=== PATIENT | female | born 1980 | race Caucasian/White ===

== ENCOUNTER 2019-08-12 17:28 | Emergency (ER) | payer MEDICAID, SELFPAY ==
[2019-08-12 17:35] VITALS: BP 145/87; PULSE 95; RESP 18; TEMP 37; O2SAT 100
--- NOTE | 2019-08-12 17:54 | ED.GENADUL_ITS ---
Discharge Plan Disposition Patient Disposition: HOME Condition: Improving Discharge Details Chief Complaint: Sorethroat Clinical Impression: Acute viral syndrome Primary Care Provider: Emy Bacon ED Provider: Wan Guillory Home Meds and New Rx's Prescriptions: Continued Ca carb-Ca gluc-Mg ox-Mg gluco [Calcium Magnesium] 1 EACH tablet 1 tab PO TID RF: 0 L.acidoph, paracasei,B. lactis 1 EACH capsule 1 cap PO TID RF: 0 vit no.[id number] [ One Daily] 1 EACH tablet 3 tab PO DAILY RF: 0 ranitidine HCl [Zantac] 150 MG tablet 150 mg PO BID Qty: 60 RF: 0 Discharge Instructions Instructions: Viral Syndrome (ED) Additional Instructions: May use Benadryl 25 mg at bedtime if rash is persistent and itching. Alternatively you may use calamine lotion or Benadryl topical cream. Small, frequent sips of fluids that she maintain hydration. Follow-up with regular doctor if not improved in 3 to 5 days time. Return to the ER for any acute concern. Medical Decision Making 38-year-old female with sore throat and rash. After some history taking, she reveals she was concerned for meningitis. She is not toxic in appearance, she has a mild blanching erythematous rash that is likely a viral exanthem. A screening strep test was obtained and negative. Patient was reassured as to the nature of probable viral syndrome. She will be discharged home. HPI General Mode of arrival: ambulatory . Date/Time Provider Initiated Documentation: 08/12/19 17:39 . Limitations to Documentation: no limitations . Information obtained by: patient . History of Present Illness 38 year old F presents to the emergency department with the chief complaint of Worried about mild rash and sore throat, described as mild, Quality is described as constant, and is localized to the neck. Patient reports no radiation. Patient started experiencing this hour(s) and it has been constant. No relieving factors improve symptom(s), No exacerbating factors reported . Patient notes fever/chills and other (Mildly itchy). Related Data Home Medications Medication Instructions Recorded Confirmed Ca carb-Ca gluc-Mg ox-Mg gluco 1 tab PO TID 05/10/16 05/10/16 [Calcium Magnesium] L.acidoph, paracasei,B. lactis 1 cap PO TID 05/10/16 05/10/16 vit no.[id number] 3 tab PO DAILY 05/10/16 05/10/16 [ One Daily] ranitidine HCl [Zantac] 150 mg PO BID #60 tab 05/10/16 Previous Rx's Medication Instructions Recorded ranitidine HCl [Zantac] 150 mg PO BID #60 tab 05/10/16 Allergies Allergy/AdvReac Type Severity Reaction Status Date / Time No Known Allergies Allergy Unverified 05/10/16 14:10 General Stated Complaint: Sorethroat JANETH: 4 Review of Systems Narrative: Sore throat, no headache, no vomiting. 6 systems reviewed and otherwise negative PFSH Family History Father Essential hypertension Grandmother Personal history of malignant neoplasm breast ca Social History Do you feel safe in your relationship?: Yes Exam Narrative Exam Narrative: GEN: awake, alert, oriented 3. Pleasant, well groomed, interactive. HEAD: Normocephalic, atraumatic ENT: Mucous membranes moist, oropharynx unremarkable, External ear exam unremarkable EYES: PERRL, EOMI NECK: Full ROM, no YOAN, no menigismus CHEST/RESP: Nontender, clear to auscultation bilateral, no wheeze/rhonchi/rales CARDIOVASCULAR: RRR, no murmur, rub jaylon. 2+ Rad pulse bilateral ABDOMEN: Soft, nontender, no mass. +Bowel sounds EXT: Full ROM, no edema Skin: Erythematous, blanching rash present on posterior neck and upper thorax. Neuro: Grossly normal neurologic exam, conversant, interactive. Psych: Speech fluent, thoughts congruent, affect normal Course Vital Signs Vital signs: Vital Signs Temperature 37 C 08/12/19 17:35 Pulse 95 H 08/12/19 17:35 Respiratory Rate 18 08/12/19 17:35 Blood Pressure 145/87 H 08/12/19 17:35 Pulse Oximetry 100 08/12/19 17:35 Temperature 37 C 08/12/19 17:35 Temperature Source Skin 08/12/19 17:35 Pulse 95 H 08/12/19 17:35 Respiratory Rate 18 08/12/19 17:35 Blood Pressure 145/87 H 08/12/19 17:35 Blood Pressure Position Supine 08/12/19 17:35 Pulse Oximetry 100 08/12/19 17:35 Oxygen Delivery Method Room Air 08/12/19 17:35 Oxygen Flow Rate 0 08/12/19 17:35 Pain Level 2 08/12/19 17:35 Lab/Test Results Lab/Test Results: POC Strep Test-EDGAR(Rapid) Start: 08/12/19 17:53 Freq: .Rapid Strep Test Status: Active Protocol: Document 08/12/19 17:53 LL (Rec: 08/12/19 17:54 LL [email or web address]) Strep test-EDGAR(Rapid)-POC POC-Strep test-EDGAR (Rapid) Negative POC-Strep test-EDGAR (Rapid) Negative
== END 2019-08-12 18:10 | disposition home or self-care (01) ==
PROVIDERS: Emergency Provider Emergency Medicine; PCP Family Medicine
DX: J02.8 Acute pharyngitis due to other specified organisms (principal); B09 Unspecified viral infection characterized by skin and mucous membrane lesions
CPT/HCPCS: 87880; 99282; 87081

== ENCOUNTER 2019-12-18 01:15 | Outpatient (CLI) | payer MEDICAID, SELFPAY ==
[2019-12-18 12:22] LABS: Absolute Basophil Count 0.02 k/cumm (0.0-0.2); Absolute Eosinophil Count 0.04 k/cumm (0.0-0.7); Absolute Lymphocyte Count 1.55 k/cumm (1.2-3.4); Absolute Monocyte Count 0.36 k/cumm (0.11-0.7); Absolute Neutrophil Count 2.38 k/cumm (1.2-6.7); Basophils % 0.5; Eosinophils % 0.9; HCT 38.5 % (36.0-46.0); HGB 13.1 g/dL (12.0-15.5); Lymphocytes % 35.6; Mean Corpuscular Hemoglobin 29.6 pg (27.0-33.0); Mean Corpuscular Volume 87.1 fL (80-95); Mean Platelet Volume 10.1 fL (8.0-11.0); Monocytes % 8.3; Neutrophils % 54.7; Platelet Count 256 x1000/uL (130-400); RBC 4.42 m/cumm (4.00-5.20); RBC Distribution Width 13.3 % (11.7-14.6); White Blood Cell Count 4.35 k/cumm (4.4-10.8)
[2019-12-18 13:06] LABS: Iron 61 ug/dL (50-170); Total Iron Binding Capacity 390 ug/dL (250-450); Transferrin Sat 16 % (15-50)
[2019-12-18 13:42] LABS: ALT 25 U/L (14-59); AST 12 U/L (15-37); Albumin 4.1 g/dL (3.4-5.0); Alkaline Phosphatase 50 U/L (46-116); BUN 14 mg/dL (7-18); Bilirubin, Total 0.5 mg/dL (0.2-1.0); Calcium 9.1 mg/dL (8.5-10.1); Chloride 104 mmol/L (98-107); Ferritin 22 ng/mL (8-252); Folate 19.8 ng/mL (8.6-20.0); Glucose 112 mg/dL (74-106); Potassium 4.3 mmol/L (3.5-5.1); Sodium 140 mmol/L (136-145); TSH 1.55 uIU/mL (0.36-3.74); Total Protein 7.1 g/dL (6.4-8.2); Vitamin B12 628 pg/mL (193-986)
[2019-12-18 14:06] LABS: FREE T4 1.13 ng/dL (0.76-1.46); NT-proBNP 9 pg/mL (<300)
[2019-12-18 17:44] LABS: T3,Free 3.9 pg/mL (2.8-5.3)
[2019-12-19 05:42] LABS: Vitamin D 25 Total 39.8 ng/ml (30-100)
[2019-12-19 09:04] LABS: FSH 3.8 mIU/mL (See Note); LH 4.2 mIU/mL (See Note)
[2019-12-19 19:26] LABS: Zinc, Serum 0.77 mcg/mL (0.66-1.10)
[2019-12-20 09:22] LABS: Homocysteine 6.9 umol/L (5.0-13.9)
== END 2019-12-18 01:35 ==
PROVIDERS: PCP Family Medicine; Visit Provider Naturopath
DX: R53.83 Other fatigue (principal); N92.6 Irregular menstruation, unspecified; F41.9 Anxiety disorder, unspecified; E55.9 Vitamin D deficiency, unspecified; R00.0 Tachycardia, unspecified; R06.00 Dyspnea, unspecified; K90.9 Intestinal malabsorption, unspecified
CPT/HCPCS: 36415; 80053; 82306; 83090; 82607; 82728; 82746; 83001; 83002; 83540; 83550; 83880; 84439; 84443; 84481; 84630; 85025

== ENCOUNTER 2019-12-26 08:03 | Outpatient (CLI) | payer MEDICAID, SELFPAY | END 2019-12-26 08:23 | PROVIDERS: PCP Family Medicine; Visit Provider Naturopath | DX: R07.9 Chest pain, unspecified (principal); R00.0 Tachycardia, unspecified | CPT/HCPCS: 93005; 93010 ==

== ENCOUNTER 2020-02-01 11:04 | Emergency (ER) | payer MEDICAID, SELFPAY ==
[2020-02-01 11:13] VITALS: BP 153/79; PULSE 82; RESP 16; TEMP 36.6; O2SAT 98
--- NOTE | 2020-02-01 11:15 | DI.RAD_ITS ---
EXAM: XR FOOT RT COMPLETE CLINICAL HISTORY: fall. TECHNIQUE: 2D digital imaging was performed. COMPARISON: No exams were available for comparison FINDINGS: BONES: No acute fracture is present. No bony destructive lesion is seen. JOINTS: No dislocation present. SOFT TISSUE: Normal. IMPRESSION: Unremarkable radiographs of the right foot. DATA REPOSITORY: RADIATION DOSE DELIVERED:
--- NOTE | 2020-02-01 11:29 | ED.GENADUL_ITS ---
Discharge Plan Disposition Patient Disposition: HOME Condition: Stable Discharge Details Chief Complaint: Orthopedic Clinical Impression: Right foot sprain Primary Care Provider: James Dunham ED Provider: Yanet Walsh Discharge Instructions Instructions: Foot Sprain (ED) Additional Instructions: Follow up with primary care provider in 3-5 days. Return to ED sooner if any worsening or concerns. Increase oral fluids. Please take Tylenol or Ibuprofen with food every 4-6 hours as needed for pain and swelling. Wear postop shoe and Joey wrap as needed for comfort. Rest, ice, compression, elevation. Apply ice for 20 minutes on and off for the first 2 to 3 days. Referrals: James Dunham [Primary Care Provider] - Discharge Data Discharge Date/Time-TO BE ENTERED AT DEPARTURE: 02/01/20 13:01 Medical Decision Making 39-year-old female presents to the ER with right foot pain after a trip and fall forward while chasing her 3-year-old child last night at 9 PM. She reports that her foot hyperflexed dorsally landing on her knees and arms. She does complain of little bit of right knee pain, no significant swelling, deformity or ecchymosis noted on initial exam. She rates her pain mild on a severity scale. She reports no other injuries. She reports an old injury noted to the base of her right toe and is just concerned for reinjury. Did not take any medications prior to arrival. X-rays of foot obtained rule out fracture, patient declined Tylenol or ibuprofen at this time, at this time I do suspect sprain versus fracture. Discussed Ortho boot with patient, verbalized understanding. Imaging protocol: XR Right foot. Views: 3 or more views. COMPARISON: No relevant prior studies available. FINDINGS: The bony structures are in anatomic alignment. No fracture is present. No radiopaque foreign body is identified. The joint spaces are well maintained. IMPRESSION: No evidence of acute bony abnormality. Thank you for allowing us to participate in the care of your patient. Dictated and Authenticated by: Boo Warren MD [facility] General Mode of arrival: ambulatory . Date/Time Provider Initiated Documentation: 02/01/20 11:23 . Limitations to Documentation: no limitations . Information obtained by: patient . HPI Narrative: 39-year-old female presents to the ER with right foot pain after a trip and fall forward while chasing her 3-year-old child last night at 9 PM. She reports that her foot hyperflexed dorsally landing on her knees and arms. She does complain of little bit of right knee pain, no significant swelling, deformity or ecchymosis noted on initial exam. She rates her pain mild on a severity scale. She reports no other injuries. She reports an old injury noted to the base of her right toe and is just concerned for reinjury. Did not take any medications prior to arrival. Related Data Allergies Allergy/AdvReac Type Severity Reaction Status Date / Time No Known Allergies Allergy Unverified 02/01/20 11:19 General Stated Complaint: Orthopedic JANETH: 4 Review of Systems Narrative: Constitutional: Negative for weight loss, alert and oriented, well groomed, normal body habitus, appears comfortable. HEENT: Denies trauma, headaches, blurry vision, nasal discharge, sore throat, trouble swallowing. Chest: Denies chest pain, palpitations, irregular rhythm, hypertension. Respiratory: Denies Shortness of breath, cough, hemoptysis. Musculoskeletal: Reports right foot pain after a trip and fall last night at 9 PM. Neuro: Denies dizziness, blurry vision, weakness, syncope, headache or facial numbness. PFSH Family History Father Essential hypertension Grandmother Personal history of malignant neoplasm breast ca Social History Smoking/Tobacco Use Status: Never Alcohol Intake: never Drug use: Never Substance use type: does not use Details: CBD oil. Do you feel safe at home: Yes Do you feel safe in your relationship?: Yes Exam Narrative Exam Narrative: Constitutional: Alert and oriented x3. Appears stated age. Overweight body habitus. Head: Normocephalic, no trauma. Eyes: Pupils PERRLA, Red reflex noted, EOM's intact. Eyelids symmetrical without lesions, discharge, or swelling. ENT: Bilateral TM's WNL, External ear normal to inspection, no mastoid TTP, swelling, or erythema, Nasal turbinates WNL, no nasal discharge. Normal dentition, Posterior pharynx WNL, no exudate. Chest: RRR, Normal S1, S2, distal pulses intact. Resp: Lungs clear to auscultation bilaterally, no wheezes, rales, or rhonchi. Musculoskeletal: Normal gait, 5/5 strength to all four extremities. Patient reports right dorsal foot tenderness, right anterior knee tenderness after mechanical fall last night at 9 PM. No obvious deformity, ecchymosis dorsal pedal pulses intact full range of motion noted to her foot. No medial or lateral malleolus tenderness palpated. No calcaneal tenderness palpated. Skin: No suspicious rashes or lesions. Capillary refill less than 2 sec. Neurologic: Cranial nerves II-XII intact. Alert and oriented x 3. DTR's intact. Hematologic/Lymphatic: No ecchymosis, no lymphadenopathy. Course Vital Signs Vital signs: Vital Signs Temperature 36.6 C 02/01/20 11:13 Pulse 82 02/01/20 11:13 Respiratory Rate 16 02/01/20 11:13 Blood Pressure 153/79 H 02/01/20 11:13 Pulse Oximetry 98 02/01/20 11:13 Temperature 36.6 C 02/01/20 11:13 Temperature Source Tympanic 02/01/20 11:13 Pulse 82 02/01/20 11:13 Respiratory Rate 16 02/01/20 11:13 Respiratory Effort Non-Labored 02/01/20 11:17 Blood Pressure 153/79 H 02/01/20 11:13 Blood Pressure Position Sitting 02/01/20 11:13 Pulse Oximetry 98 02/01/20 11:13 Oxygen Delivery Method Room Air 02/01/20 11:13 Oxygen Flow Rate 0 02/01/20 11:13 Pain Level 3 02/01/20 11:17
--- NOTE | 2020-02-01 12:14 | DI.VRAD_ITS ---
PROCEDURE INFORMATION: Exam: XR Right Foot Complete Exam date and time: 02/01/2020 11:21 AM Age: 39 years old Clinical indication: Other: Fall TECHNIQUE: Imaging protocol: XR Right foot. Views: 3 or more views. COMPARISON: No relevant prior studies available. FINDINGS: The bony structures are in anatomic alignment. No fracture is present. No radiopaque foreign body is identified. The joint spaces are well maintained. IMPRESSION: No evidence of acute bony abnormality. Dictated and Authenticated by: Boo Warren MD. Ordering:ARMINDA Holt MD
[2020-02-01 13:02] VITALS: BP 116/57; PULSE 81; RESP 14; TEMP 36.6; O2SAT 98
== END 2020-02-01 13:01 | disposition home or self-care (01) ==
PROVIDERS: Emergency Provider Registered Nurse Emergency; PCP Family Medicine
DX: S93.601A Unspecified sprain of right foot, initial encounter (principal); W01.0XXA Fall on same level from slipping, tripping and stumbling without subsequent striking against object, initial encounter
CPT/HCPCS: 99283; 73630; 99282; L4361

== ENCOUNTER 2023-05-23 14:56 | Outpatient (CLI) | payer MEDICAID, SELFPAY ==
--- NOTE | 2023-05-23 14:30 | DI.RAD_ITS ---
Exam(s) XR SHOULDER LT COMPLETE 2+V EXAM: XR SHOULDER LT COMPLETE 2+V CLINICAL HISTORY: LEFT SHOULDER PAIN. TECHNIQUE: 2D digital imaging was performed. Two views. COMPARISON: No exams were available for comparison FINDINGS: BONES: No acute fracture is present. No bony destructive lesion is seen. JOINTS: No dislocation present. There are no significant degenerative changes. SOFT TISSUE: Normal. IMPRESSION: Unremarkable radiographs of the left shoulder. DATA REPOSITORY: RADIATION DOSE DELIVERED:
== END 2023-05-23 14:57 | disposition home or self-care (01) ==
LOC: DIORS 14:56
PROVIDERS: PCP Family Medicine; Visit Provider Student in an Organized Health Care Education/Training Program
DX: M25.512 Pain in left shoulder (principal)
CPT/HCPCS: 73030

== ENCOUNTER → 2023-08-31 00:22 | Outpatient (CLI) | payer MEDICAID, SELFPAY ==
--- NOTE | 2023-08-31 07:15 | DI.MRI_ITS ---
Exam(s) MR UPPER JOINT LT WO EXAM: MR UPPER JOINT LT WO CLINICAL HISTORY: ? RTC TEAR,adhesive capsulitis lt shoulder,m75.02. TECHNIQUE: Multiplanar multisequence MRI was performed. COMPARISON: CR XR SHOULDER LT COMPLETE 2+V from 05/23/2023 FINDINGS: BONES: There is no fracture or contusion pattern. JOINTS: The acromioclavicular joint is normal. The glenohumeral joint is normal. TENDONS: Supraspinatus: There is tendinosis of the supraspinatus tendon. There is hyperintense signal seen wi thin the tendon suspicious for partial intrasubstance tear. Infraspinatus: Unremarkable. Subscapularis: Unremarkable. Teres Minor: Unremarkable. Biceps and Shoals: Unremarkable. MUSCLES: Unremarkable. GLENOID LABRUM: Unremarkable on this noncontrast examination. SOFT TISSUES: Unremarkable. LIGAMENTS: Unremarkable. OTHER: There is a tiny amount of fluid in the subacromial subdeltoid bursa. IMPRESSION: There is tendinosis of the supraspinatus tendon. There is hyperintense signal seen within the supras pinatus tendon suspicious for partial intrasubstance tear. DATA REPOSITORY:
== END ==
PROVIDERS: PCP Family Medicine; Visit Provider Student in an Organized Health Care Education/Training Program
DX: M75.02 Adhesive capsulitis of left shoulder (principal)
CPT/HCPCS: 73221

== ENCOUNTER 2023-10-25 18:55 | Outpatient (REF) | payer MEDICAID, SELFPAY ==
--- NOTE | 2023-10-25 13:30 | PAPFT_PTH ---
PATIENT: Cheli Bob LOC: [facility] U#:[id number] AGE/SX: 43/F ROOM: RE10/25/[address]: Ginny Crain : 1980 BED: DIS: 10/25/2023 SPEC #: [id number] RECD: 10/26/23 13:04 STATUS: JONAH REShira #: [id number] LINO: 10/25/23 13:[address]: Ginny Crain DEPT: [facility] Cytology RECD BY: Karmen Varner ENTERED: 10/26/23 13:04 SP TYPE: PAPFT OTHR DR: James Dunham Tissues: 1 - CX/ENDOCX FOR PAP SMEARS Procedures: PAP THIN PREP/[facility] Screening HPV DNA PROBE Comments: [id number] (HPV 16 & 18/45) (CHLAMYDIA/GC)
[2023-10-27 15:27] LABS: Chlamydia Result Negative (Negative); GC Result Negative (Negative)
== END 2023-10-25 18:56 | disposition home or self-care (01) ==
LOC: LBN 18:55
PROVIDERS: PCP Family Medicine; Visit Provider Nurse Practitioner Family
DX: Z01.419 Encounter for gynecological examination (general) (routine) without abnormal findings (principal)
CPT/HCPCS: 87491; 87591; 88142; 87624

== ENCOUNTER 2025-03-13 15:45 | Outpatient (CLI) | payer MEDICAID, SELFPAY ==
[2025-03-13 15:47] LABS: Abs Immature Grans 0.01 10^3/uL (0.0-0.06); HCT 38.9 % (36.0-46.0); HGB 13.4 g/dL (11.2-15.7); Immature Grans % 0.1 %; MCH 29.8 pg (27.0-33.0); MCHC 34.4 % (32.0-36.0); MCV 87 fL (80-95); MPV 9.5 fL (8.0-11.0); Platelet Count 254 10^3/uL (130-400); RBC 4.49 10^6/uL (3.93-5.22); RDW 13.2 % (11.7-14.6); RDW-SD 41.7 fL; WBC 6.73 10^3/uL (4.4-10.8)
[2025-03-13 16:45] LABS: ALT 19 U/L (14-59); AST 9 U/L (15-37); Albumin 3.8 g/dL (3.4-5.0); Alkaline Phosphatase 49 U/L (46-116); Anion Gap 8.5 mmol/L (3-11); BUN 13 mg/dL (7-18); Bilirubin, Total 0.5 mg/dL (0.2-1.0); CO2 27.5 mmol/L (21.0-32.0); Calcium 8.9 mg/dL (8.5-10.1); Chloride 103 mmol/L (98-107); Estimated GFR 93.70 (mL/min/1.73m2); Glucose 103 mg/dL (74-106); Potassium 3.7 mmol/L (3.5-5.1); Sodium 139 mmol/L (136-145); TSH 2.06 uIU/mL (0.36-3.74); Total Protein 7.1 g/dL (6.4-8.2); Triglyceride 101 mg/dL (<150)
[2025-03-13 17:39] LABS: Calculated LDL 126 mg/dL (<100); Cholesterol 197 mg/dL (<200); Ferritin 30 ng/mL (8-252); HDL Cholesterol 51 mg/dL (>or=50)
[2025-03-13 17:57] LABS: Hemoglobin A1C 5.5 % (<5.7)
[2025-03-14 23:11] LABS: T3,Free 4.2 pg/mL (2.8-5.3)
== END 2025-03-13 15:46 | disposition home or self-care (01) ==
LOC: LBO 15:45
PROVIDERS: PCP Family Medicine; Visit Provider Family Medicine
DX: Z13.220 Encounter for screening for lipoid disorders (principal); Z13.1 Encounter for screening for diabetes mellitus; Z82.3 Family history of stroke; Z82.49 Family history of ischemic heart disease and other diseases of the circulatory system; R53.83 Other fatigue; R00.2 Palpitations; R42 Dizziness and giddiness
CPT/HCPCS: 36415; 80053; 80061; 83695; 82728; 83036; 84439; 84443; 84481; 85025